=== PATIENT | male | born 1980 | race Caucasian/White ===

== ENCOUNTER 2020-10-06 09:40 | Emergency (ER) | payer OTHER ==
[~2020-10-06] VITALS: Ht 172.7 cm; Wt 78.2 kg
[2020-10-06 09:40] VITALS: BP 127/79
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
[2020-10-06] MEDS ORDERED: LIDO700A21 TP (10:26)
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
[2020-10-06] MEDS ORDERED: LIDOCAINE (700MG/PATCH) PATCH. TD SCH (10:30)
[2020-10-06] MEDS ORDERED: PATCH REMOVAL. MC SCH (21:00)
== END 2020-10-06 10:36 | disposition home or self-care (01) ==
LOC: ER 09:40
DX: S29.9XXA Unspecified injury of thorax, initial encounter (principal); X50.9XXA Other and unspecified overexertion or strenuous movements or postures, initial encounter; Y93.89 Activity, other specified; Y92.89 Other specified places as the place of occurrence of the external cause; Y99.8 Other external cause status
CPT/HCPCS: 71101; 99283